=== PATIENT | female | born 1935 | race Caucasian/White ===

== ENCOUNTER 2016-06-19 11:12 | Observation (INO) | payer MEDICARE, BC ==
--- NOTE | ~2016-06-19 | DS ---
Discharge Summary [facility] [address] [place]. [address] NAME: KAMI SAUER : 34 STATUS : DIS Estefani PAT#: [id number] AGE: 80 ADM/REG DATE : 06/19/16 MR#: [id number] REPORT SERV DATE: 06/21/16 DICTATED BY: CRISS JACKSON DATE: 06/20/16 REPORT STATUS : Draft TRANSCRIBED BY: MODL DATE: 06/20/16 ADMISSION DATE: 06/19/2016 DISCHARGE DATE: 06/20/2016 DISCHARGE DIAGNOSES: 1. Chronic obstructive pulmonary disease exacerbation. 2. Dyspnea, improved. 3. Squamous cell lung cancer. 4. Acute on chronic pain due to #3. IMAGING: Chest x-ray, 06/19/2016. Impression: Borderline heart size, mild vascular prominence. No infiltrate. CONSULTATIONS: Oncology, Dr. Loren Vásquez. COURSE OF HOSPITAL STAY: Please refer to history and physical dictated on 06/19/2016 for complete admission details. The patient was a direct admission from Dr. 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 The patient is undergoing radiation, last radiation was 06/18/2016. The patient stated that she had had increased shortness of breath over the past several days to weeks. The patient noted it more prominent following her last chemotherapy. The patient was noted with low O2 saturation in Dr. Vásquez's office. The patient was admitted under observation. 1. COPD exacerbation. The patient has known history of COPD. The patient was started on Solu-Medrol and DuoNeb treatments. The patient will transition to prednisone 40 mg p.o., she will complete a five-day course. We will continue her albuterol and Spiriva at home as previously prescribed. 2. Dyspnea, which has improved since admission. The patient states at this time no shortness of breath. We will do a home O2 eval prior to discharge to evaluate for oxygen needs. 3. Squamous cell carcinoma. The patient is under the care of Dr. Loren Vásquez's. The patient will follow up outpatient in regular scheduled appointment. 4. Acute on chronic pain due to #3. The patient has had increased pain and states that she has been unable to afford her medication. watershed program manager has been working with the patient regarding [id number] cost. Prescriptions for MS Contin and oxycodone have been provided prior to discharge. The patient is being discharged home in hemodynamically stable condition. We will follow up with Dr. Loren Vásquez at her regular scheduled appointment. DISCHARGE MEDICATIONS: 1. Norvasc 5 mg one p.o. daily. 2. Aspirin 325 mg one p.o. daily. 3. Caltrate 600 mg one p.o. daily. Discharge Summary [address] [address] NAME: KAMI SAUER : 34 STATUS : DIS Estefani PAT#: [id number] AGE: 80 ADM/REG DATE : 06/19/16 MR#: [id number] REPORT SERV DATE: 06/21/16 DICTATED BY: CRISS JACKSON DATE: 06/20/16 REPORT STATUS : Draft TRANSCRIBED BY: MINISTERIO DATE: 06/20/16 4. Oxycodone 5 mg one to two p.o. every four hours p.r.n. for pain. 5. Dipyridamole 75 mg one p.o. twice daily. 6. MS Contin 15 mg one p.o. every 12 hours. 7. Multivitamin one p.o. daily. 8. Toprol 25 mg one p.o. twice daily. 9. Zofran 8 mg one p.o. every four hours p.r.n. for nausea. 10.Crestor 5 mg one p.o. Friday, Friday, Friday. 11.Ativan 0.5 mg one p.o. every four to six hours p.r.n. for nausea. 12.CoQ10, 100 mg one p.o. daily. This discharge took less than 30 minutes. [facility]/MODL Criss Jackson NP / [id number] CC: MD Ammon Jefferson M.D.
--- NOTE | ~2016-06-19 | HP ---
History And Physical [address] [place]. [address] NAME: KAMI SAUER : 34 STATUS : ADM IN [facility]#: [id number] AGE: 80 ADM/REG DATE : 06/19/16 MR#: [id number] REPORT SERV DATE: 06/19/16 DICTATED BY: CRISS JACKSON DATE: 06/19/16 REPORT STATUS : Draft TRANSCRIBED BY: MODL DATE: 06/19/16 DATE OF ADMISSION: 06/19/2016 CHIEF COMPLAINT: Increased shortness of breath and weakness. HISTORY OF PRESENT ILLNESS: This patient is an 80-year-old female who presented in Dr. Loren Vásquez's office with complaints of increased shortness of breath and weakness. 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 Last chemotherapy 06/12/2016. Last radiation 06/18/2016. The patient stated that she has had increased shortness of breath since her last chemotherapy and has had slight nausea and also diarrhea on 06/14/2016 and 06/15/2016 with abdominal cramping which has now cleared. She denies any fever or chills. She denies any chest pain at this time. She does state that she has chronic pain, thoracic to lumbar back. The patient states that she has had stable weight, has had no additional weight loss with chemotherapy. She does state that she is on no oxygen at home but has had increased shortness of breath and a productive cough. Does state that she has noticed increased shortness of breath with exertion. REVIEW OF SYSTEMS: Otherwise negative review of systems except what is listed above. PAST MEDICAL HISTORY: 1. Chronic obstructive pulmonary disease. 2. Osteoarthritis. 3. Hypertension. 4. Peripheral vascular disease. 5. 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 PAST SURGICAL HISTORY: 1. Hysterectomy. 2. Tonsillectomy. 3. Cholecystectomy. 4. Bilateral total knee arthroscopy. 5. Appendectomy. SOCIAL HISTORY: The patient is . is in a usp. She does live with her 2 children. She no longer smokes. She denies alcohol use. She denies illicit drug use. HOME MEDICATIONS: 1. Aspirin. 2. Calcium D. 3. CoQ-10. 4. Crestor. 5. Lipitor. 6. Multivitamin. History And Physical [address] [place]. [address] NAME: KAMI SAUER : 34 STATUS : ADM IN [facility]#: [id number] AGE: 80 ADM/REG DATE : 06/19/16 MR#: [id number] REPORT SERV DATE: 06/19/16 DICTATED BY: CRISS JACKSON DATE: 06/19/16 REPORT STATUS : Draft TRANSCRIBED BY: MINISTERIO DATE: 06/19/16 7. Norvasc. 8. Vitamin B12. 9. Vitamin D. 10.Persantine. ALLERGIES: NO KNOWN DRUG ALLERGIES. PHYSICAL EXAMINATION: VITAL SIGNS: O2 saturation is 98% on room air. Temperature is 97.7, pulse is 92, respirations are 16, blood pressure is 101/58. GENERAL: This patient is alert and oriented. No acute distress. NEUROLOGIC: The patient is alert and oriented x3. NECK: No JVD. LYMPH: No cervical lymphadenopathy. LUNGS: Expiratory wheezes bilaterally. CARDIOVASCULAR: Tachycardic. No murmurs, rubs, or gallops. ABDOMEN: Soft, nontender to touch. Bowel sounds are active. EXTREMITIES: No cyanosis, no edema. No cuts or bruises. LABORATORY DATA: To be obtained. IMAGING: To be obtained. PLAN OF CARE: 1. Chronic obstructive pulmonary disease exacerbation. The patient has had complaints of productive cough and expiratory wheezing for several days. We will begin the patient on Solu-Medrol and respiratory treatments and transition the patient to prednisone. 2. Dyspnea. The patient has had complaints of increased shortness of breath with ambulation. We will do a home O2 eval prior to discharge. 3. Squamous cell carcinoma of the lungs with metastasis to the spine. The patient is followed by Dr. Loren Vásquez. We will consult Oncology to follow the patient during this hospital stay. 4. Acute on chronic pain due to #3. The patient has had complaints of ongoing pain, increased, has been unable to afford pain medications. We will have caser shoe parts involved in care regarding prescription medications prior to discharge. We will continue the patient on home dose. 5. Code. The patient is a DNR. 6. The patient will be followed by Dr. Jack Henson during her hospital stay. [facility]/MINISTERIO Criss Jackson NP / [id number] History And Physical [address] [address] NAME: KAMI SAUER : 34 STATUS : ADM IN PAT#: [id number] AGE: 80 ADM/REG DATE : 06/19/16 MR#: [id number] REPORT SERV DATE: 06/19/16 DICTATED BY: CRISS JACKSON DATE: 06/19/16 REPORT STATUS : Draft TRANSCRIBED BY: MINISTERIO DATE: 06/19/16 CC: MD Ammon Jefferson M.D.
[~2016-06-19 11:12] MED LIST: 8 HOUR650 MG PO; ASA5GR PO; CALTRA600D PO; CRESTOR20 MG PO; CRESTOR5 MG PO; DIPYRIDAMOLE75 MG PO; DSS PO; GENPRIL200 MG PO; GLUCCHONDR PO; MULTIPLE VIT PO; NORV5 PO; OS500+D PO; P1 PO; P5 PO; PEP20 PO; PERSANTINE75 MG OR; PERSANTINE75 MG PO; PROZ10 PO; PULMICORT180 MCG INH; PULMICORT90 MCG INH; SENTAB PO; SYMBICORT 160/41 INH INH; TOPXL25 PO; TYLENOL ARTH650 MG PO; ULTRAM50 PO; VITAMIN B-121000 MC1 SL
[2016-06-19] MEDS ORDERED: NORV5 PO (14:37)
[2016-06-19] MEDS ORDERED: CALTRAT600 PO (14:38)
[2016-06-19] MEDS ORDERED: TOPXL25 PO (14:38)
[2016-06-19] MEDS ORDERED: CRESTOR5 MG PO (14:38)
[2016-06-19] MEDS ORDERED: ZOFRAN8 PO (14:38)
[2016-06-19] MEDS ORDERED: CO Q-10100 MG PO (14:39)
[2016-06-19] MEDS ORDERED: MULTIVITAMI1 PO (14:39)
[2016-06-19] MEDS ORDERED: DIPYRIDAMOLE75 MG PO (14:39)
[2016-06-19] MEDS ORDERED: ATV.5 PO (14:39)
[2016-06-19] MEDS ORDERED: OXYCOD PO (14:40)
[2016-06-19] MEDS ORDERED: OXYCON10 PO (14:40)
[2016-06-19] MEDS ORDERED: ASAB PO (14:40)
[2016-06-20] MEDS ORDERED: P10 PO (12:35)
[2016-06-20] MEDS ORDERED: MSCONT15 PO (12:37)
[2016-06-20] MEDS ORDERED: OXYCOD PO (12:38)
[2016-06-20] MEDS ORDERED: P20 PO (13:18)
[2016-10-19] MEDS ORDERED: COUMADIN4 MG PO (20:47)
[2016-10-19] MEDS ORDERED: LOP25 PO (20:48)
[2016-10-19] MEDS ORDERED: ZOFRAN8 PO (20:48)
[2016-10-19] MEDS ORDERED: ATV.5 PO (20:48)
[2016-10-19] MEDS ORDERED: OXYCOD PO (20:49)
[2016-10-19] MEDS ORDERED: B121000P IM (20:49)
[2016-10-19] MEDS ORDERED: SYMBICORT 160/41 INH INH (20:49)
[2016-10-19] MEDS ORDERED: CARTIA XT120 MG/24 PO (20:49)
[2016-10-19] MEDS ORDERED: MULTIVIT/MIN PO (20:49)
[2016-10-19] MEDS ORDERED: VITAMIN D3 OTC PO (20:50)
[2016-10-19] MEDS ORDERED: CALCIUM OTC PO (20:50)
== END 2016-06-20 18:35 | disposition home or self-care (01) ==
LOC: 4EA 11:12
DX: J44.1 Chronic obstructive pulmonary disease with (acute) exacerbation (principal); C34.92 Malignant neoplasm of unspecified part of left bronchus or lung; C34.91 Malignant neoplasm of unspecified part of right bronchus or lung; C79.51 Secondary malignant neoplasm of bone; G89.3 Neoplasm related pain (acute) (chronic); I10 Essential (primary) hypertension; I73.9 Peripheral vascular disease, unspecified; M19.90 Unspecified osteoarthritis, unspecified site; Z90.710 Acquired absence of both cervix and uterus; Z90.89 Acquired absence of other organs; Z90.49 Acquired absence of other specified parts of digestive tract; Z98.890 Other specified postprocedural states; Z87.891 Personal history of nicotine dependence; Z91.041 Radiographic dye allergy status; Z79.82 Long term (current) use of aspirin; Z79.891 Long term (current) use of opiate analgesic; Z79.899 Other long term (current) drug therapy
CPT/HCPCS: 71010; 77336; 77386; 94640; 96372; A9270-GY; G0378; J2930

== ENCOUNTER 2016-07-09 09:28 | Inpatient (IN) | payer MEDICARE, BC ==
--- NOTE | ~2016-07-09 | CN ---
Consultation Report [place] [address] [facility] [place]. [address] NAME: ALAYNA MERINO : 34 STATUS : ADM IN [facility]#: [id number] AGE: 80 ADM/REG DATE : 07/09/16 MR#: [id number] REPORT SERV DATE: 07/11/16 DICTATED BY: MAGDIEL VERDUZCO DATE: 07/11/16 REPORT STATUS : Draft TRANSCRIBED BY: MODAriel DATE: 07/11/16 DATE OF CONSULTATION: Mrs. Alayna Merino is an 80-year-old female who was referred for management of atrial fibrillation. CVD PHYSICIAN: Dr. Hussein Gonzalez M.D.; Oncologist, Dr. Vásquez, table tender sludge, Dr. Ryder. HISTORY OF PRESENT ILLNESS: Mrs. Alayna Merino has recently been diagnosed with cancer and is undergoing chemotherapy and radiation therapy. She was admitted with AFib with RVR and converted to sinus rhythm spontaneously. She has now been started on p.o. Cardizem. REVIEW OF SYSTEMS: Negative for chest pain, chest discomfort, syncope, presyncope, previous history of palpitations or atrial fibrillation. Rest is negative. PAST MEDICAL HISTORY: 1. Metastatic lung cancer with chemotherapy and radiation therapy. Diagnosis, squamous cell carcinoma with metastases to spine. 2. COPD. 3. Osteoarthritis. 4. Long history of hypertension. 5. History of 75% stenosis of the carotid artery. SOCIAL HISTORY: She is and with two children. She did smoke one-pack per day for approximately 20 years, quitting two to three years ago. She does not drink. PHYSICAL EXAMINATION: VITAL SIGNS: Blood pressure 125/63, pulse is regular at 84. GENERAL: She is resting comfortably. Nutritional status appears adequate. EYES: PERRLA. RESPIRATORY: Coarse rales of the lower bases. CARDIOVASCULAR: 1/6 systolic murmur heard. PULSES: Carotids without bruits. ABD: +BS, nontender. EXT: No cyanosis, clubbing or edema. SKIN: No petechiae. NEURO: Alert and oriented. Does not appear anxious or depressed. LABORATORY EVALUATION: EKG initially showed AFib with RVR with left bundle-branch block. Telemetry now shows sinus rhythm. Previous echocardiogram showed biatrial enlargement with increased right atrial pressure. ASSESSMENT: 1. The patient has already been placed on anticoagulation, and we will continue this. Consultation Report [place] [address] [place]. [address] NAME: ALAYNA MERINO : 34 STATUS : ADM IN PAT#: [id number] AGE: 80 ADM/REG DATE : 07/09/16 MR#: [id number] REPORT SERV DATE: 07/11/16 DICTATED BY: MAGDIEL VERDUZCO DATE: 07/11/16 REPORT STATUS : Draft TRANSCRIBED BY: MODL DATE: 07/11/16 2. Rate control atrial fibrillation, beginning p.o. Cardizem. 3. Lung cancer per Dr. Vásquez. 4. Chronic obstructive pulmonary disease, currently having oxygen replaced. 5. Hypertension, adequately controlled. [facility]/MINISTERIO Magdiel Verduzco M.D. / [id number] CC: MD Ammon Wray II, M.D.
--- NOTE | ~2016-07-09 | HP ---
History And Physical [place] [address] [place]. [address] NAME: KAMI SAUER : 34 STATUS : ADM IN [facility]#: [id number] AGE: 80 ADM/REG DATE : 07/09/16 MR#: [id number] REPORT SERV DATE: 07/09/16 DICTATED BY: SALUD BERRIOS II DATE: 07/09/16 REPORT STATUS : Draft TRANSCRIBED BY: MODL DATE: 07/09/16 DATE OF ADMISSION: 07/09/2016 PRIMARY ONCOLOGIST: Loren Vásquez M.D. CHIEF COMPLAINT: Asymptomatic atrial fibrillation with RVR. HISTORY OF PRESENT ILLNESS: The patient is an 80-year-old female with a history of metastatic squamous cell carcinoma of the lung with metastasis to spine as well as COPD, peripheral vascular disease, and hypertension, who presented to [facility] from her primary care physician, Dr. Ryder's office after being found to be in atrial fibrillation with RVR. Currently, the patient denies any chest pain or worsening shortness of breath. She has chronic intermittent shortness of breath as well as cough related to her known history of lung cancer. The patient is currently status post carbo/Taxol about two weeks ago, for which she has already had about 5 or 6 cycles. Otherwise, she denies any weakness, dizziness, nausea, vomiting, or diarrhea. Denies any dysuria, hemoptysis, melena, or hematochezia. She states her appetite has actually been doing well, and she has only lost about 2 pounds since starting chemotherapy. In Dr. Ryder's office, she was found to have heart rate in the 150s, though otherwise asymptomatic. REVIEW OF SYSTEMS: 10-point review of systems otherwise negative except for HPI. PAST MEDICAL HISTORY: 1. COPD. 2. 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 3. Osteoarthritis. 4. Hypertension. 5. Peripheral vascular disease with 75% stenosis of the carotid. PAST SURGICAL HISTORY: Hysterectomy, tonsillectomy, cholecystectomy, bilateral total knee arthroscopy, and appendectomy. SOCIAL HISTORY: The patient is . is in a shelter. She lives with her two children and no longer smokes, but did smoke about 20 years ago and has a 85-[id number]-ufyl history. Otherwise, denies any alcohol or drug use. HOME MEDICATIONS: Norvasc, aspirin, Caltrate, CoQ-10, Dipyridamole, Ativan, metoprolol, MS Contin, multivitamin, Zofran, Roxicodone, Deltasone, and Crestor. ALLERGIES: NO KNOWN DRUG ALLERGIES. FAMILY HISTORY: Significant for heart disease in the mother, and her brother is with heart disease. PHYSICAL EXAMINATION: History And Physical [address] [address] NAME: KAMI SAUER : 34 STATUS : ADM IN [facility]#: [id number] AGE: 80 ADM/REG DATE : 07/09/16 MR#: [id number] REPORT SERV DATE: 07/09/16 DICTATED BY: SALUD BERRIOS II DATE: 07/09/16 REPORT STATUS : Draft TRANSCRIBED BY: MINISTERIO DATE: 07/09/16 VITAL SIGNS: Blood pressure 92/58, heart rate 142, temperature 97.8, respiratory rate 16, O2 saturation 90% on room air. GENERAL: The patient is alert and oriented x3, in no acute distress. NECK: Supple. Nontender. No lymphadenopathy. No thyromegaly. HEENT: Moist mucous membranes. Pupils are equal, round, and reactive to light. Conjunctivae clear. RESPIRATORY: Lungs are fairly diminished on the left and less so on the right, though clear with no rhonchi or rales. CARDIOVASCULAR: Irregularly irregular. No murmurs, rubs, or gallops. ABDOMEN: Soft, nontender, nondistended. Normoactive bowel sounds. EXTREMITIES: No cyanosis, clubbing, or edema. SKIN: No lesions, rashes, or wounds. NEURO: No focal deficits. LABORATORY DATA: Pending. ASSESSMENT AND PLAN: The patient is an 80-year-old female with: 1. Atrial fibrillation with RVR which is new onset, possibly secondary to Taxol. We will check an echocardiogram. Bolus of IV fluids given her blood pressure which is in the 90s over 50s. Plan Cardizem drip. Given her age, history of hypertension, she would likely benefit from anticoagulation, so we will discontinue her Dipyridamole, decrease her aspirin to 81, and start her on Lovenox with plan to transition to either Eliquis or Coumadin. 2. Hypotension. She is on several blood pressure medicines and her pressure tends to run low. She does appear somewhat volume depleted, so bolus IV fluids and start Cardizem when her systolic pressure is greater than 100. 3. Chronic obstructive pulmonary disease. Currently seems stable. 4. Metastatic lung cancer, status post recent carbo/Taxol. Followed by Dr. Loren Vazquez. We will consult if needed. 5. Peripheral vascular disease. 6. The patient is DNR/DNI. [facility]/MINISTERIO Salud Berrios II, MD / [id number] CC: MD Ammon Wray II, M.D.
--- NOTE | ~2016-07-09 | DS ---
Discharge Summary [facility] [address] [place]. [address] NAME: KAMI SAUER : 34 STATUS : DIS IN PAT#: [id number] AGE: 80 ADM/REG DATE : 07/09/16 MR#: [id number] REPORT SERV DATE: 07/16/16 DICTATED BY: SALUD BERRIOS II DATE: 07/15/16 REPORT STATUS : Draft TRANSCRIBED BY: MODL DATE: 07/15/16 ADMISSION DATE: 07/09/2016 DISCHARGE DATE: 07/15/2016 DISCHARGE DIAGNOSES: 1. New-onset atrial fibrillation with rapid ventricular response, now normal sinus. 2. Acute hypoxic respiratory failure. 3. Small left pleural effusion. 4. Mild chronic diastolic congestive heart failure with mild pulmonary hypertension and moderate tricuspid regurg. 5. Metastatic lung cancer followed by Dr. Loren Vásquez. 6. Chronic obstructive pulmonary disease. 7. Hypertension. 8. History of peripheral vascular disease. CONSULTS: Dr. Duncan with cardiology. BRIEF HISTORY OF PRESENT ILLNESS: The patient is an 80-year-old female with the above history who presented to [facility] due to asymptomatic atrial fib with RVR. For detailed history and physical examination, please see my note from 07/09/2016. HOSPITAL COURSE: On admission, the patient was in AFib with RVR with heart rate of 159. She was placed on a Cardizem drip, and Cardiology was consulted. Her BNP on admission was 429. She was completely asymptomatic and was able to spontaneously convert back to sinus rhythm. Echocardiogram showed low normal LVEF with EF of 50%. Also mild diastolic dysfunction. Normal right ventricular chamber size and function. Mild pulmonary hypertension. Moderate TR. Mild MR/MS. Mild . Biatrial enlargement. Elevated right atrial pressures. She had occasional episodes of AFib with RVR, and Dr. Duncan was consulted as a result. The patient has been switched over to Cardizem long acting, and her heart rate has been stable in the 50s to 60s. Given insurance, the patient was started on Coumadin for an INR of 2.3. The patient's hospitalization would likely have been shorter; however, she developed a left pleural effusion. There was concern for consolidation and parapneumonic effusion though the patient was afebrile. White count was normal, and procalcitonin was less than 0.05, so a CT of the chest was done which showed no cardiopulmonary disease though with a small free- flowing left pleural effusion and emphysema. There is also interval decrease in the left retroaortic space mass now measuring 3.4 x 1.8 cm compared to 4.4 x 3.2 cm on 07/27. Otherwise, bony destruction at T6 and T7 without evidence of epidural mass and a pathologic fracture. Right upper lobe subsolid/ground-glass lesion measuring 1.4 x 1.7 cm. This previously measured 1.4 x 1.2 cm 04/29. She was requiring oxygen which she never has before and was attempted to diurese though still on ambulation desatting to 87% on room air, so she will have to return home with oxygen for the time being. We will continue a low-dose diuretic with Lasix 20 mg p.o. daily. Hopefully with gentle diuresis, she will be able to come off O2 in the weeks to come. She is not particularly short of breath and does not feel like she needs it, but we will at least send her home with oxygen. At this point, she is stable for discharge. We will set her up with home health as well to check INR and follow BNP. We will have her follow up with Dr. Ryder, Dr. Duncan, and Dr. Vásquez in the next few Discharge Summary [address] [address] NAME: KAMI SAUER : 34 STATUS : DIS IN PAT#: [id number] AGE: 80 ADM/REG DATE : 07/09/16 MR#: [id number] REPORT SERV DATE: 07/16/16 DICTATED BY: SALUD BERRIOS II DATE: 07/15/16 REPORT STATUS : Draft TRANSCRIBED BY: MINISTERIO DATE: 07/15/16 weeks. DISCHARGE MEDICATIONS: 1. Aspirin 81 mg p.o. daily. 2. Caltrate 600 mg p.o. daily. 3. Coenzyme Q10, 100 mg p.o. daily. 4. Cardizem 120 mg p.o. daily. 5. MS Contin 15 mg p.o. q.12 hours. 6. Multivitamin 1 tab p.o. daily. 7. Toprol-XL 25 mg p.o. b.i.d. 8. Coumadin 4 mg p.o. daily. 9. Albuterol ProAir 2 puffs inhaled q.4 hours p.r.n. 10.Zofran 8 mg p.o. q.4 hours p.r.n. 11.Crestor 5 mg p.o. Friday, Friday, Friday. 12.Ativan 0.5 mg p.o. at bedtime. 13.Oxycodone 1 tab p.o. b.i.d. p.r.n. pain. 14.Ativan 0.5 mg p.o. daily p.r.n. anxiety. 15.Symbicort two puffs inhaled b.i.d. 16.Lasix 20 mg p.o. daily. 17.Potassium chloride 20 mEq p.o. daily. DISCHARGE INSTRUCTIONS: The patient will need to follow with Dr. Loren Vásquez in one to two weeks, Dr. Duncan in two to three weeks, Dr. Ryder in one to two weeks. LAVELLE/REESEL Salud Berrios II, MD / [id number] CC: Del Ross M.D. Mark Thel, M.D.
[~2016-07-09 09:28] MED LIST changes: +ASAB PO; +ATV.5 PO; +CALTRAT600 PO; +CO Q-10100 MG PO; +MSCONT15 PO; +MULTIVITAMI1 PO; +OXYCOD PO; +OXYCON10 PO; +P10 PO; +P20 PO; +ZOFRAN8 PO
[2016-07-09 12:04] LABS: HEMOGLOBIN 11.4 g/dL (12.0-16.0); MEAN CORPUSCULAR HEMOGLOB 31.1 pg (26.0-34.0); MEAN PLATELET VOLUME 10.1 fL (9.2-13.0); RED CELL COUNT 3.67 10/6/uL (4.0-5.6)
[2016-07-09 12:05] LABS: HEMATOCRIT 36.8 % (36.0-48.0); MANUAL DIFF YES %; MEAN CORPUSCULAR VOLUME 100.3 fL (80-100); PLATELET COUNT 140 10/3/uL (150-400); RBC DISTRIBUTION WIDTH 16.6 % (12.0-16.0)
[2016-07-09 12:27] LABS: BAND NEUTROPHILS 17 %; EOSINOPHILS 1 %; EOSINOPHILS ABSOLUTE (CALC) 0.05 10/3/uL (0.0-0.53); IMMATURE GRANS ABSOLUTE (CALC) 0.05 10/3/uL (0.0-0.11); LYMPHOCYTES 6 %; MACROCYTES 1+ (5-10/OIF) (0-5/OIF); METAMYELOCYTES 1 %; MONOCYTES 9 %; MONOCYTES ABSOLUTE (CALC) 0.45 10/3/uL (0.21-1.20); NEUTROPHILS ABSOLUTE (CALC) 4.15 10/3/uL (2.02-8.40); PLATELET ESTIMATE SLT DEC (ADEQUATE); SEGMENTED NEUTROPHIL (0) 66 %; TOTAL NUCLEATED CELLS 100
[2016-07-09 12:28] LABS: ALBUMIN 2.5 G/DL (3.5-5.0); CHLORIDE, SERUM 109 MMOL/L (96-112); CO2 (CARBON DIOXIDE) 26 MMOL/L (24-34); GFR AFRICAN AMERICAN 55 ML/MIN (>=60); GFR NON AFRICAN AMERICAN 47 ML/MIN (>=60); POLYCHROMASIA 1+ (2-5/OIF) (0-1/OIF); POTASSIUM, SERUM 3.6 MMOL/L (3.5-5.3); SGOT(AST) 14 U/L (5-40); SGPT(ALT) 15 U/L (5-65); SODIUM, SERUM 142 MMOL/L (135-148); TOTAL BILIRUBIN 0.5 MG/DL (0-1.2)
[2016-07-09 12:29] LABS: A/G RATIO 0.8 (0.7-1.9); ALKALINE PHOSPHATASE 64 U/L (45-117); BUN (BLOOD UREA NITROGEN) 23 MG/DL (6-23); CALCIUM, SERUM 8.3 MG/DL (8.5-10.4); GLOBULIN 3.1 G/DL (2.5-4.1); GLUCOSE, SERUM 90 MG/DL (60-99); TOTAL PROTEIN 5.6 G/DL (6.0-8.5); TROPONIN I 0.05 NG/ML (<0.05)
[2016-07-09] MEDS ORDERED: ATV.5 PO (12:40)
[2016-07-09] MEDS ORDERED: SYMBICORT 160/41 INH INH (12:55)
[2016-07-09] MEDS ORDERED: PROAIR HFA INH (12:56)
[2016-07-09 22:49] LABS: ASCORBIC ACID (UR NOT ORDER) NEG (NEG); BILIRUBIN, URINE NEGATIVE (NEG); KETONE, URINE NEGATIVE (NEG); LEUKOCYTE ESTERASE(NOT OR SMALL (NEG); WBC (NOT ORDERED) (RFLEX) 6 (0-5)
[2016-07-10 05:35] LABS: BASOPHILS 0.3 %; BASOPHILS ABSOLUTE 0.01 10/3/uL (0.0-0.16); EOSINOPHILS 1.7 %; EOSINOPHILS ABSOLUTE 0.06 10/3/uL (0.0-0.53); HEMATOCRIT 34.2 % (36.0-48.0); HEMOGLOBIN 10.9 g/dL (12.0-16.0); IMMATURE GRANULOCYTES 0.6 %; IMMATURE GRANULOCYTES ABSOLUTE 0.02 10/3/uL (0.0-0.11); LYMPHOCYTES 10.4 %; LYMPHOCYTES ABSOLUTE 0.37 10/3/uL (0.67-4.30); MEAN CORPUS HGB CONC 31.9 g/dL (32.0-36.0); MEAN CORPUSCULAR HEMOGLOB 31.8 pg (26.0-34.0); MEAN CORPUSCULAR VOLUME 99.7 fL (80-100); MEAN PLATELET VOLUME 10.1 fL (9.2-13.0); MONOCYTES 13.5 %; MONOCYTES ABSOLUTE 0.48 10/3/uL (0.21-1.20); NEUTROPHILS 73.5 %; NEUTROPHILS ABSOLUTE 2.62 10/3/uL (2.02-8.40); PLATELET COUNT 138 10/3/uL (150-400); RBC DISTRIBUTION WIDTH 16.5 % (12.0-16.0); RED CELL COUNT 3.43 10/6/uL (4.0-5.6); WHITE BLOOD CELLS 3.6 10/3/uL (4.5-10.5)
[2016-07-10 05:36] LABS: MANUAL DIFF NO %
[2016-07-10 05:41] LABS: CALCIUM, SERUM 8.2 MG/DL (8.5-10.4); CHLORIDE, SERUM 112 MMOL/L (96-112); CO2 (CARBON DIOXIDE) 25 MMOL/L (24-34); CREATININE 0.88 MG/DL (0.55-1.02); GFR AFRICAN AMERICAN 71 ML/MIN (>=60); GFR NON AFRICAN AMERICAN 62 ML/MIN (>=60); GLUCOSE, SERUM 79 MG/DL (60-99); POTASSIUM, SERUM 4.1 MMOL/L (3.5-5.3); SODIUM, SERUM 144 MMOL/L (135-148)
[2016-07-10 05:42] LABS: BUN (BLOOD UREA NITROGEN) 14 MG/DL (6-23)
[2016-07-10 18:22] LABS: INTERNATIONAL NORMAL RATI 1.1 UNITS (-); PROTIME (NOT ORD) 13.6 SEC (12.0-14.5)
[2016-07-11 05:49] LABS: INTERNATIONAL NORMAL RATI 1.2 UNITS (-); PROTIME (NOT ORD) 15.1 SEC (12.0-14.5)
[2016-07-12 05:34] LABS: INTERNATIONAL NORMAL RATI 1.6 UNITS (-)
[2016-07-13 05:06] LABS: INTERNATIONAL NORMAL RATI 2.1 UNITS (-)
[2016-07-13 05:07] LABS: PROTIME (NOT ORD) 23.2 SEC (12.0-14.5)
[2016-07-14 01:54] LABS: BASOPHILS 0.3 %; BASOPHILS ABSOLUTE 0.01 10/3/uL (0.0-0.16); EOSINOPHILS 1.9 %; EOSINOPHILS ABSOLUTE 0.06 10/3/uL (0.0-0.53); HEMATOCRIT 36.7 % (36.0-48.0); HEMOGLOBIN 11.6 g/dL (12.0-16.0); IMMATURE GRANULOCYTES 0.3 %; IMMATURE GRANULOCYTES ABSOLUTE 0.01 10/3/uL (0.0-0.11); LYMPHOCYTES 11.9 %; LYMPHOCYTES ABSOLUTE 0.38 10/3/uL (0.67-4.30); MANUAL DIFF NO %; MEAN CORPUS HGB CONC 31.6 g/dL (32.0-36.0); MEAN CORPUSCULAR HEMOGLOB 30.7 pg (26.0-34.0); MEAN CORPUSCULAR VOLUME 97.1 fL (80-100); MONOCYTES 19.1 %; MONOCYTES ABSOLUTE 0.61 10/3/uL (0.21-1.20); NEUTROPHILS 66.5 %; NEUTROPHILS ABSOLUTE 2.12 10/3/uL (2.02-8.40); PLATELET COUNT 150 10/3/uL (150-400); RBC DISTRIBUTION WIDTH 15.7 % (12.0-16.0); RED CELL COUNT 3.78 10/6/uL (4.0-5.6); WHITE BLOOD CELLS 3.2 10/3/uL (4.5-10.5)
[2016-07-14 02:01] LABS: INTERNATIONAL NORMAL RATI 1.9 UNITS (-); PROTIME (NOT ORD) 21.8 SEC (12.0-14.5)
[2016-07-14 02:04] LABS: CALCIUM, SERUM 8.4 MG/DL (8.5-10.4); GFR AFRICAN AMERICAN 61 ML/MIN (>=60); GFR NON AFRICAN AMERICAN 53 ML/MIN (>=60); SODIUM, SERUM 142 MMOL/L (135-148)
[2016-07-14 02:09] LABS: BUN (BLOOD UREA NITROGEN) 9 MG/DL (6-23); CHLORIDE, SERUM 102 MMOL/L (96-112); CO2 (CARBON DIOXIDE) 32 MMOL/L (24-34); GLUCOSE, SERUM 109 MG/DL (60-99); POTASSIUM, SERUM 3.1 MMOL/L (3.5-5.3)
[2016-07-15 05:26] LABS: BUN (BLOOD UREA NITROGEN) 9 MG/DL (6-23); CALCIUM, SERUM 8.5 MG/DL (8.5-10.4); CHLORIDE, SERUM 104 MMOL/L (96-112); CO2 (CARBON DIOXIDE) 31 MMOL/L (24-34); CREATININE 0.98 MG/DL (0.55-1.02); GFR AFRICAN AMERICAN 63 ML/MIN (>=60); GFR NON AFRICAN AMERICAN 54 ML/MIN (>=60); GLUCOSE, SERUM 91 MG/DL (60-99); SODIUM, SERUM 141 MMOL/L (135-148)
[2016-07-15 05:27] LABS: POTASSIUM, SERUM 3.9 MMOL/L (3.5-5.3)
[2016-07-15 05:29] LABS: INTERNATIONAL NORMAL RATI 2.3 UNITS (-)
[2016-07-15 05:33] LABS: PROTIME (NOT ORD) 25.4 SEC (12.0-14.5)
[2016-07-15] MEDS ORDERED: HALF81 PO (15:37)
[2016-07-15] MEDS ORDERED: CARD120 PO (15:38)
[2016-07-15] MEDS ORDERED: COUMADIN4 MG PO (15:39)
[2016-07-15] MEDS ORDERED: KLOR-CON20 MEQ PO (15:40)
[2016-07-15] MEDS ORDERED: L20 PO (15:40)
[2016-10-19] MEDS ORDERED: COUMADIN4 MG PO (20:47)
[2016-10-19] MEDS ORDERED: ATV.5 PO (20:48)
[2016-10-19] MEDS ORDERED: LOP25 PO (20:48)
[2016-10-19] MEDS ORDERED: ZOFRAN8 PO (20:48)
[2016-10-19] MEDS ORDERED: CARTIA XT120 MG/24 PO (20:49)
[2016-10-19] MEDS ORDERED: SYMBICORT 160/41 INH INH (20:49)
[2016-10-19] MEDS ORDERED: MULTIVIT/MIN PO (20:49)
[2016-10-19] MEDS ORDERED: OXYCOD PO (20:49)
[2016-10-19] MEDS ORDERED: B121000P IM (20:49)
[2016-10-19] MEDS ORDERED: CALCIUM OTC PO (20:50)
[2016-10-19] MEDS ORDERED: VITAMIN D3 OTC PO (20:50)
== END 2016-07-15 18:17 | disposition home health service (06) | DRG 308 ==
LOC: 7NO 09:28
PROVIDERS: Internal Medicine
DX: I48.0 Paroxysmal atrial fibrillation (principal); J96.01 Acute respiratory failure with hypoxia; J90 Pleural effusion, not elsewhere classified; I50.32 Chronic diastolic (congestive) heart failure; C79.51 Secondary malignant neoplasm of bone; I11.0 Hypertensive heart disease with heart failure; I95.9 Hypotension, unspecified; J43.9 Emphysema, unspecified; J44.9 Chronic obstructive pulmonary disease, unspecified; Z66 Do not resuscitate; I08.3 Combined rheumatic disorders of mitral, aortic and tricuspid valves; I44.7 Left bundle-branch block, unspecified; E78.5 Hyperlipidemia, unspecified; E03.9 Hypothyroidism, unspecified; I73.9 Peripheral vascular disease, unspecified; Z79.82 Long term (current) use of aspirin; Z79.891 Long term (current) use of opiate analgesic; Z79.899 Other long term (current) drug therapy; Z87.891 Personal history of nicotine dependence; Z85.118 Personal history of other malignant neoplasm of bronchus and lung; Z90.710 Acquired absence of both cervix and uterus; Z90.49 Acquired absence of other specified parts of digestive tract; Z96.653 Presence of artificial knee joint, bilateral
CPT/HCPCS: 71010; 71020; 71250; 80048; 80053; 81001; 82962; 83735; 83880; 84145; 84443; 84484; 85025; 85610; 87077; 87086; 87186; 93005; 94640; A9270-GY; C8929; J1940; Q9957